=== PATIENT | female | born 2000 ===

== ENCOUNTER 2020-12-27 13:36 | Outpatient (CLI) | payer BC | END 2020-12-27 13:37 | disposition home or self-care (01) | LOC: ULT 13:36 | PROVIDERS: ATTEND Internal Medicine Cardiovascular Disease | DX: I49.3 Ventricular premature depolarization (principal); R00.2 Palpitations; I07.1 Rheumatic tricuspid insufficiency; I31.3 Pericardial effusion (noninflammatory) | CPT/HCPCS: 93306 ==